=== PATIENT | male | born 1955 | race Caucasian/White ===

== ENCOUNTER 2018-06-22 15:18 | Emergency (ER) | payer OTHER ==
[~2018-06-22] VITALS: Ht 182.9 cm; Wt 90.7 kg
[2018-06-22 15:32] VITALS: BP_SYST 140
[2018-06-22] MEDS ORDERED: ACETAMINOPHEN 500 MG TABLET PO ONE (17:45)
[2018-06-22 18:20] VITALS: BP_SYST 116
== END 2018-06-22 18:20 | disposition home or self-care (01) ==
LOC: SED 15:18
DX: S32.2XXA Fracture of coccyx, initial encounter for closed fracture (principal); Z86.711 Personal history of pulmonary embolism; Z88.6 Allergy status to analgesic agent; Z88.5 Allergy status to narcotic agent; W18.39XA Other fall on same level, initial encounter; Y93.89 Activity, other specified; Y92.512 Supermarket, store or market as the place of occurrence of the external cause; Y99.8 Other external cause status
CPT/HCPCS: 72220-TC; 99284

== ENCOUNTER 2018-06-22 22:50 | Emergency (ER) | payer OTHER ==
[~2018-06-22] VITALS: Ht 182.9 cm; Wt 90.7 kg
[2018-06-22 23:01] VITALS: BP_SYST 111
[2018-06-23 00:42] VITALS: BP_SYST 111
== END 2018-06-23 00:42 | disposition home or self-care (01) ==
LOC: SED 22:50
DX: S09.90XA Unspecified injury of head, initial encounter (principal); R51 Headache; Z88.6 Allergy status to analgesic agent; Z88.5 Allergy status to narcotic agent; Z86.73 Personal history of transient ischemic attack (TIA), and cerebral infarction without residual deficits; W19.XXXA Unspecified fall, initial encounter; Y93.89 Activity, other specified; Y92.89 Other specified places as the place of occurrence of the external cause; Y99.8 Other external cause status
CPT/HCPCS: 70450-TC; 99284

== ENCOUNTER 2020-12-21 11:32 | Emergency (ER) | payer OTHER, SELFPAY ==
[~2020-12-21] VITALS: Ht 182.9 cm; Wt 90.7 kg
[2020-12-21 12:16] VITALS: BP_SYST 130
[2020-12-21 12:58] LABS: BASOPHILS # (AUTO) 0.1 K/uL (0.0-0.2); BASOPHILS % (AUTO) 1.4 % (0.0-2.0); EOSINOPHILS # (AUTO) 0.2 K/uL (0.0-0.4); EOSINOPHILS % (AUTO) 2.3 % (0.0-4.0); HEMATOCRIT 43.2 % (36-54); HEMOGLOBIN 15.2 g/dL (14.0-18.0); LYMPHOCYTES # (AUTO) 0.9 K/uL (1.0-5.5); LYMPHOCYTES % (AUTO) 13.5 % (20.5-51.5); MEAN CORPUSCULAR HEMOGLOBIN 32 pg (27-31); MEAN CORPUSCULAR HGB CONC 35 % (32-36); MEAN CORPUSCULAR VOLUME 90 fL (79.0-98.0); MONOCYTES # (AUTO) 0.6 K/uL (0.0-1.0); MONOCYTES % (AUTO) 8.3 % (1.7-9.3); NEUTROPHILS # (AUTO) 5.1 K/uL (1.8-7.7); NEUTROPHILS % (AUTO) 74.5 % (40.0-70.0); PLATELET COUNT (AUTO) 237 K/uL (130-430); RED CELL DISTRIBUTION WIDTH 13.8 % (9.0-15.0); WHITE BLOOD COUNT (AUTO) 6.8 K/uL (4.8-10.8)
[2020-12-21] MEDS ORDERED: SODIUM PHOSPHATE,MONO-DIBASIC 133 ML ENEMA RC ONE (13:00)
[2020-12-21] MEDS ORDERED: MAGNESIUM CITRATE 300 ML ORAL SOLUTION PO ONE (13:00)
[2020-12-21 13:10] LABS: BILIRUBIN,URINE NEGATIVE (NEGATIVE); BLOOD, URINE NEGATIVE (NEGATIVE); CLARITY/URINE CLEAR (CLEAR); COLOR,URINE YELLOW (YELLOW); GLUCOSE,URINE NEGATIVE (NEGATIVE); KETONES,URINE NEGATIVE (NEGATIVE); LEUKOCYTE ESTERASE ,URINE NEGATIVE (NEGATIVE); NITRITE, URINE NEGATIVE (NEGATIVE); PH,URINE 5.5 (5.0-8.0); PROTEIN URINE NEGATIVE (NEGATIVE); UROBILINOGEN,URINE 0.2 (0.2-1.0)
[2020-12-21 13:16] LABS: CALCIUM 9.2 mg/dL (8.4-11.0); CREATININE 1.37 mg/dL (0.55-1.30); POTASSIUM 3.9 mmol/L (3.5-5.1)
[2020-12-21 13:24] LABS: ALBUMIN 3.9 g/dL (3.4-4.8); TOTAL BILIRUBIN 1.2 mg/dL (0.0-1.0)
[2020-12-21] MEDS ORDERED: DOCU250C14 PO (14:19)
[2020-12-21 15:35] VITALS: BP_SYST 128
== END 2020-12-21 15:35 | disposition home or self-care (01) ==
LOC: SED 11:32
DX: K59.00 Constipation, unspecified (principal); I25.2 Old myocardial infarction; R10.9 Unspecified abdominal pain; Z20.822 Contact with and (suspected) exposure to COVID-19
CPT/HCPCS: 36415; 80053; 81003; 83690-TC; 85025; 99283